=== PATIENT | female | born 1990 | race Caucasian/White ===

== ENCOUNTER 2017-03-09 12:22 | Emergency (ER) | payer BC, OTHER ==
[~2017-03-09] VITALS: Ht 162.6 cm; Wt 67.0 kg
[2017-03-09 12:24] VITALS: Ht 162.6 cm; Wt 67.0 kg
[2017-03-09] MEDS ORDERED: LORAZEPAM 1 MG TAB PO STA (12:52)
--- NOTE | 2017-03-09 13:32 | RADRPT ---
PROCEDURE: XR Chest. CLINICAL INDICATION: Shortness of breath TECHNIQUE: Single frontal view of the chest was obtained COMPARISON: None FINDINGS: The heart and mediastinum are within normal limits. The lungs are clear. There is no pleural effusion or pneumothorax. The osseous structures, as visualized, are unremarkable. IMPRESSION: No acute disease. RPTAT: PP Physician Alexandr Date Time Electronically viewed and signed by César Zee Physician on 03/09/2017 13:31 RC/
[2017-03-09] MEDS ORDERED: FAMO-96 PO (13:59)
[2017-03-09 14:05] VITALS: BP 108/74; PULSE 86; RESP 16; TEMP 98.6
--- NOTE | 2017-03-09 15:29 | ERD ---
ER Documentation Chief Complaint Date/Time DATE: 03/09/17 TIME: 15:27 Chief Complaint anxiety attack this morning HPI This is a 26-year-old female presenting to the emergency department complaining of mild, nonradiating chest pain since this morning. Patient states that she has difficulty breathing, she states that she felt like she could not catch her breath and as she focused on it got worse and she started hyperventilating. Patient states that she started getting numbness and tingling in her hands and feet. Patient states that this happened a few times in the past 5 years. Patient denies fevers. Denies taking any medications for the ROS All systems reviewed and are negative except as per history of present illness. Medications Home Meds Active Scripts Famotidine* (Pepcid*) 20 Mg Tablet, 20 MG PO DAILY, #20 TAB Prov:FRANCY CASTILLO PA-C 03/09/17 PMhx/Soc Medical and Surgical Hx: pt denies Medical Hx, pt denies Surgical Hx Hx Alcohol Use: Yes Hx Substance Use: No Hx Tobacco Use: Yes Smoking Status: Former smoker Physical Exam Vitals Vital Signs Date Time Temp Pulse Resp B/P Pulse Ox O2 Delivery O2 Flow Rate FiO2 03/09/17 14:05 98.6 86 16 108/74 99 Room Air 03/09/17 12:24 98.8 98 24 119/85 98 Physical Exam GENERAL: no acute distress, non-toxic appearing, sitting up in bed HENT: normocephalic/atraumatic EYES: conjunctiva is normal NECK: no noticeable or palpable swelling, no carotid bruits, no JVD CARDIOVASCULAR: RRR, good S1S2, no murmurs or gallops heard PULM: clear to auscultation, no use of accessory muscles, no crackles or wheezes. ABDOMEN: normal bowel sounds, abdomen soft and nontender EXT: no edema, cyanosis or clubbing MUSCULOSKELETAL: 5/5 strength, normal range of motion, no swollen or erythematous joints. NEURO: alert and oriented SKIN: no rashes, skin warm and dry, no erythematous areas BREAST: breast exam was not relevant, therefore not preformed PSYCH: normal mood and mentation, denies suicidal or homicidal ideation and thoughts Results 24 hrs Current Medications Medications (Trade) Dose Ordered Sig/Cathleen Route PRN Reason Start Time Stop Time Status Last Admin Dose Admin Lorazepam (Ativan) 1 mg ONCE STAT PO 03/09/17 12:52 03/09/17 12:54 DC 03/09/17 13:04 Procedures/MDM This is a 26-year-old female presenting to the emergency department complaining of mild chest pain and shortness of breath which is likely due to an anxiety attack. Low suspicion for ACS, infection, pulmonary embolism, pneumonia. Clinically, patient appears anxious. Chest x-ray was done in the ED did not show any evidence of pneumothorax, pleural effusion or infiltrates. EKG did not show any evidence of STEMI. Patient has a low heart score, it is unlikely she has any cardiac causes. I have given her 1 tablet of Ativan 1 mg and reassessed her, she seemed feels a lot better. She states that she does feel a burning sensation in his esophagus, patient likely has gastritis as well. Patient stable to be discharged home with a prescription of Pepcid. Discussed return to the ER for any worsening conditions. She understands and agrees with this plan. EKG: read and signed off by myself and dr linder Rate/Rhythm: [Normal Sinus Rhythm] QRS, ST, T-waves: [No changes consistent w/ acute ischemia] Impression: [No evidence of ischemia or arrhythmia] Departure Diagnosis: Primary Impression: Anxiety Additional Impression: Shortness of breath Condition: Stable Patient Instructions: Your Body's Response to Anxiety, Coping with Shortness of Breath: Controlling Stress, Gastritis (Adult) Additional Instructions: FOLLOW UP WITH YOUR PRIMARY CARE PHYSICIAN TOMORROW.Return to this facility if you are not improving as expected. Take all medicines as directed. Return to this facility if you are not improving as expected. FRANCY CASTILLO PA-C Mar 09, 2017 15:29
== END 2017-03-09 14:11 | disposition home or self-care (01) ==
LOC: FTE 12:22
DX: F41.9 Anxiety disorder, unspecified (principal); R06.02 Shortness of breath; Z87.891 Personal history of nicotine dependence
CPT/HCPCS: 71010; 93005